=== PATIENT | female | born 1985 | race Caucasian/White ===

== ENCOUNTER 2025-09-02 18:40 | Observation (INO) | payer MEDICAID, SELFPAY ==
[2025-09-02 18:41] VITALS: BMI 43.8
[2025-09-02 19:34] VITALS: BP 161/95; PULSE 92; RESP 19; TEMP 36.9; O2SAT 100
--- NOTE | 2025-09-02 19:49 | XR_ITS ---
Examination: Venous duplex lower extremity sonogram, bilateral. Date and time of exam: September 02, 2025, 2054 hours INDICATIONS: Bilateral leg swelling and pain redness today Technique: Multiple sonographic images of the deep venous system have been obtained. B-mode/2-D grayscale imaging of vascular structures and Doppler spectral analysis (waveforms) and color performed Both legs are examined. Findings: Deep venous systems do not demonstrate abnormal echogenicity. All visualized deep veins exhibit compressibility. All visualized deep veins exhibit augmentation. Impression: Negative for deep vein thrombosis
--- NOTE | 2025-09-02 19:49 | XR_ITS ---
Examination: Arterial duplex lower extremity study. Date and time of exam: September 02, 2025, 2038 hours INDICATION: Bilateral leg swelling redness and pain today Findings: Duplex sonographic imaging of the lower extremity arteries using B-mode/Lau scale imaging and Doppler spectral analysis and color flow. . Right common femoral artery demonstrates triphasic flow. Right superficial femoral artery demonstrates triphasic flow. Right popliteal artery demonstrates triphasic flow. Right posterior tibial artery demonstrated triphasic flow. Left common femoral artery demonstrates triphasic flow. Left superficial femoral artery demonstrates triphasic flow. Left popliteal artery demonstrates triphasic flow. Left posterior tibial artery demonstrated monophasic flow. Impression: Suspicious for bilateral lower extremity obstructive arterial disease in the trifurcation arteries below the knee, consider correlation, elective, with CTA abdominal aorta iliofemoral runoff post intravenous contrast
--- NOTE | 2025-09-02 19:50 | EDRME_ITS ---
Rapid Medical Screening Exam RME Arrival date/time: 09/02/25 18:40 40F with history of CHF (based on chart history) as well as some type of arterial/venous blockage (clots had to be removed at [facility]) presents to ED with several days of BLE swelling, redness, pain, and warmth. Patient denies itching and obvious injury/trauma/cut. Chief Complaint: Extremity Injury, Lower Time Seen by Provider: 09/02/25 19:58 Vital signs: Vital Signs Temperature 98.4 F 09/02/25 19:34 Pulse Rate 92 09/02/25 19:34 Respiratory Rate 19 09/02/25 19:34 Blood Pressure 161/95 H 09/02/25 19:34 Pulse Oximetry (%) 100 09/02/25 19:34 Oxygen Delivery Method Room Air 09/02/25 19:34 Exam: BLE swelling and redness that goes up to knees. Normal WOB Clinical Impression: cellulitis vs DVT vs PAD vs CHF exacerbation vs nec fasc
[2025-09-02 20:24] LABS: Lactate (Lactic Acid) 0.6 mMol/L (0.4-2.0)
[2025-09-02 20:31] LABS: Sed Rate (ESR) 25 mm/hr (0-20)
[2025-09-02 20:34] LABS: Basophils # (Auto) 0.1 Thou/mm3 (0.0-0.2); Basophils % (Auto) 1 % (0-2.5); Eosinophils # (Auto) 0.2 Thou/mm3 (0.0-0.5); Eosinophils % (Auto) 3 % (0-10); Hematocrit 35.4 % (36.0-46.0); Hemoglobin 11.5 g/dL (12.0-16.0); Immature Granulocytes Auto 0.03 Thou/mm3 (0.00-0.00); Lymphocytes # (Auto) 1.8 Thou/mm3 (1.0-4.8); Lymphocytes % (Auto) 21 % (10-50); Mean Corpuscular HGB Conc 32.5 g/dl (31.0-37.0); Mean Corpuscular Hemoglobin 25.1 pg (25.0-35.0); Mean Corpuscular Volume 77 fL (80-100); Monocytes # (Auto) 0.7 Thou/mm3 (0.0-0.8); Monocytes % (Auto) 8 % (0-12); Neutrophils # (Auto) 5.8 Thou/mm3 (1.8-7.7); Neutrophils % (Auto) 67 % (37-80); Nucleated Red Blood Cell # 0.00 Thou/mm3 (0.00-0.00); Nucleated Red Blood Cell % 0 /100 WBC (0); Platelet Count 259 Thou/mm3 (140-440); RDW Standard Deviation 41.1 fL (36.4-46.3); Red Blood Count 4.58 Miln/mm3 (4.00-5.20); White Blood Count 8.6 Thou/mm3 (3.6-11.0)
[2025-09-02 20:48] LABS: B-Type Natriuretic Peptide 20 pg/mL (0-100)
[2025-09-02 20:52] LABS: Amphetamine/Methamp Scrn,U Positive (Negative); Barbiturate Screen,Urine Negative (Negative); Benzodiazepines Screen,Urine Negative (Negative); Benzoylecgonine Screen, Ur Negative (Negative); Fentanyl Screen,Urine Negative (Negative); Opiate Screen,Urine Negative (Negative); THC Screen,Urine Positive (Negative)
[2025-09-02 20:55] LABS: HCG Qualitative,Urine Negative
[2025-09-02 20:56] LABS: Alanine Aminotransferase 26 U/L (10-49); Albumin, Serum 4.4 gm/dL (3.5-5.0); Albumin/Globulin Ratio 1.4 (1.2-2.2); Alkaline Phosphatase 104 U/L (46-116); Anion Gap 8 (7-16); Aspartate Amino Transferase 23 U/L (0-34); BUN/Creatinine Ratio 12 Ratio (12-20); Bilirubin,Total 0.7 mg/dL (0.3-1.2); Blood Urea Nitrogen 11 mg/dL (9-23); C-Reactive Protein 1.6 mg/dL (0.0-0.9); Calcium 9.3 mg/dL (8.3-10.6); Calcium (Corrected) 9.3 mg/dL (8.5-10.1); Carbon Dioxide 27.7 mMol/L (20.0-31.0); Chloride 102 mMol/L (98-107); Creatinine (Component) 0.9 mg/dL (0.6-1.3); Estimated Creatinine Clearance 116.3 mL/min (>60); Globulin 3.2 gm/dL (2.3-3.5); Glucose 99 mg/dL (74-106); Osmolality,Calculated 275 (275-295); Potassium 4.0 mMol/L (3.4-5.1); Procalcitonin < 0.04 ng/ml (0.0-0.49); Sodium 138 mMol/L (136-145); Total Protein 7.6 gm/dL (5.7-8.2); eGFR > 60 See Note
[2025-09-03] VITALS (7 sets, daily range): BP systolic 122–190; BP diastolic 77–106; PULSE 87–99; RESP 12–19; TEMP 36.2–37.2; O2SAT 93–100; BMI 43.8
--- NOTE | 2025-09-03 01:50 | EDNOTE_ITS ---
Lower Extremity Injury RME/HPI General Chief Complaint: Extremity Injury, Lower Stated Complaint: B/L LEG SWELLING/REDNESS & WARM TO TOUCH Time Seen by Provider: 09/02/25 19:58 Arrival date/time: 09/02/25 18:40 RME / HPI RME / HPI Narrative: 09/02/25 18:40 40F with history of CHF (based on chart history) as well as some type of arterial/venous blockage (clots had to be removed at [facility]) presents to ED with several days of BLE swelling, redness, pain, and warmth. Patient denies itching and obvious injury/trauma/cut. DR. HERNANDEZ MAIN ED EVALUATION: 40 y/o female with FHx of CHF and Hx of HTN presents to ED c/o BLE redness, pain, and swelling x 2 days, but worse today. Patient denies fever, chills, nausea, and vomiting. Denies trauma. Denies any medical history or allergies to medications. Patient does admit to trying to quit Methamphetamine, but denies IV drug abuse. No alcohol use reported. Exam: BLE swelling and redness that goes up to knees. Normal WOB Impression: cellulitis vs DVT vs PAD vs CHF exacerbation vs nec fasc Related Data Previous Rx's ?Medication ?Instructions ?Recorded cephalexin 500 mg capsule 500 mg PO QID 4 days #16 cap s 09/05/25 Allergies Allergy/AdvReac Type Severity Reaction Status Date / Time No Known Allergies Allergy Verified 09/02/25 18:43 Review of Systems Review of Systems Systems Reviewed: All systems reviewed, normal except as documented Past Medical History Past Medical History CARDIAC: Positive Hypertension RESPIRATORY: Positive Asthma GASTROINTESTINAL: Positive Gall Bladder Disease PSYCHO/SOCIAL: Positive Recreational Drug Use Surgical History SURGICAL: Positive Throat Surgery, Abdominal Surgery and Section Social History SUBSTANCE USE: methamphetamine ALCOHOL: Never ED Exam Narrative Physical exam: GEN. APPEARANCE: The patient is alert awake oriented X-3 in no distress, lying down comfortably, does not look ill/toxic. Patient has good eye contact. Patient is cooperative. VITALS: All vitals were reviewed and the pulse ox is 100% on room air which is normal according to my interpretation. HEENT: Normocephalic, atraumatic. Pupils are equal and reactive. Oral mucosa is moist. Patent Nares NECK: Supple, nontender, no thyromegaly, no meningismus, no JVD CHEST: Symmetrical, atraumatic, and with equal expansion , Nontender on p alpation no deformity and no crepitus. CARDIOVASCULAR: Heart regular rhythm no murmur or gallop rub or extra beats. LUNGS: Clear to auscultation bilaterally with symmetrical chest rise. No laboring tachypnea or wheezing. No intercostal subcostal retraction. No rales and no rhonchi. ABDOMEN: Soft, flat, nontender to palpation, no guarding or rebound tenderness. There are no abnormal masses palpated. Active and normal bowel sounds. EXTREMITIES: BLE very TTP. 2+ pitting edema of BLE, warmth, and redness from the ankles to below the knees. No cyanosis. Patient is able to move all 4 extremities well, with full ROM and good CSM. 2+ DP pulses bl LE intact symmetrical. NEURO: Patient is ROWLEY x 4, Cranial nerves II through XII grossly intact. There is no focal neurologic deficits noted. GCS is 15, PNS and [employer] appear grossly intact. Course Quality Measures none Orders Category Date Time Status CT Screening NOW Care 09/03/25 01:[address] angio abd ilio fem runoff Stat Exams 09/03/25 01:52 Completed US arterial duplex LE BI Stat Exams 09/02/25 19:49 Completed US venous doppler LE BI Stat Exams 09/02/25 19:49 Completed BNP [B-Type Natriuretic Peptide] Stat Lab 09/02/25 20:17 Completed Blood Culture (Lab) Stat Lab 09/03/25 03:02 Results CBC Stat Lab 09/02/25 20:17 Completed CMP [Comprehensive Metabolic Panel] Stat Lab 09/02/25 20:17 Completed CRP [C-Reactive Protein] Stat Lab 09/02/25 20:17 Completed Drug Screen,Urine Stat Lab 09/02/25 20:30 Completed ESR [Sed Rate (ESR)] Stat Lab 09/02/25 20:17 Completed HCG Qualitative,Urine Stat Lab 09/02/25 20:30 Completed Lactate (Lactic Acid) Stat Lab 09/02/25 20:17 Completed Procalcitonin Stat Lab 09/02/25 20:17 Completed Vancomycin,Trough AM DRAW Lab 09/04/25 04:52 Completed Piper/Tazo Inj [Zosyn Inj] 4.5 gm Med 09/03/25 02:01 Discontinued Sodium Chloride 0.9% (Pop) [NS 0.9% mini bag] 100 ml IV STAT Vancomycin Pharmacy to Dose Med 09/03/25 09:00 Discontinued 1 each IV QDAY PRN Vancomycin/Ns 1 gm Ivpb 200 ml Med 09/03/25 02:15 Discontinued IV Q100M Vancomycin/Ns 1 gm Ivpb 200 ml Med 09/03/25 14:00 Discontinued IV Q8HR Vancomycin/Ns 1 gm Ivpb 200 ml Med 09/03/25 14:00 Discontinued IV Q8HR oxyCODONE/APAP 5/325 [Percocet 5/325] Med 09/03/25 03:00 Discontinued 1 tab PO X1 ONE Vital Signs Vital signs: Vital Signs Temperature 98.4 F 09/02/25 19:34 Pulse Rate 92 09/02/25 19:34 Respiratory Rate 19 09/02/25 19:34 Blood Pressure 161/95 H 09/02/25 19:34 Pulse Oximetry (%) 100 09/02/25 19:34 Oxygen Delivery Method Room Air 09/02/25 19:34 Extremity Injury, Lower MDM Narrative MDM Narrative:: Scribe Attestation: Meenakshi Eaton am scribing for and in the presence of Dr. Hernandez. Provider Notation: Although this document has been carefully reviewed, there may still be some phonetic and other typographical errors. These errors are purely grammatical due to imperfections in the software program and should not be c onstrued in any way to compromise the substance of the patient's medical care during this visit. Patient is a 40-year-old male with history of CHF is in the emergency department with concerns for bilateral lower extremity swelling pain redness and warmth. Prior provider evaluated patient. Ordered labs bilateral lower extremity ultrasound venous and arterial. Concern for DVT, arterial occlusion, cellulitis, CHF exacerbation among others Labs without leukocytosis, no left shift, hemoglobin 11.5 this is near the patient's normal. No acute metabolic disturbance, lactic acid normal, CRP is elevated to 1.6 BNP is normal procalcitonin not elevated drug screens positive for amphetamines and marijuana. Lower extremity venous ultrasounds without evidence of DVT, duplex scans of lower extremity arteries with evidence of possible bilateral lower extremity obstructive arterial disease in the trifurcation arteries below the knee. Will order CTA iliofemoral with runoff. Of note patient has required clot removal procedure and outside hospital [facility] years ago for similar symptoms. Also patient has been off of her medications for heart failure for some time as she has not been able to follow-up with her primary care doctor. On my assessment patient patient has swelling of bilateral lower extremity symmetric, as well as redness below the knee to the ankle warm and red concerning for cellulitis. Ordered blood cultures and antibiotics. Patient is not dyspneic not tachypneic not tachycardic. She is otherwise hemodynamically stable. CTA with cellulitis, no evidence of occluded vessel. Discussed admission with hospitalist service, kindly admitted patient for admission Patient data External records reviewed:: [facility] previous records (Reviewed prior ED records from 08/20/23. Patient was seen for Dental infection.) Clinical information provided by:: patient Social determinants that could affect healthcare access:: substance use (Methamphetamine) Patient has the following chronic illnesses:: Hypertension, Asthma, Gall Bladder Disease, Recreational Drug Use How is presenting disease/condition affected by chronic disease/condition?: exacerbated by Evaluation data The following diagnostics were reviewed and interpreted by me:: lab results and radiology exam(s) Lab and/or radiology exams considered but not ordered:: None Interpretation Summary: RADIOLOGY Venous Doppler Study US: Findings: Deep venous systems do not demonstrate abnormal echogenicity. All visualized deep veins exhibit compressibility. All visualized deep veins exhibit augmentation. Impression: Negative for deep vein thrombosis Duplex Scan of LE Artery: Findings: Duplex sonographic imaging of the lower extremity arteries using B-mode/Lau scale imaging and Doppler spectral analysis and color flow. Right common femoral artery demonstrates triphasic flow. Right superficial femoral artery demonstrates triphasic flow. Right popliteal artery demonstrates triphasic flow. Right posterior tibial artery demonstrated triphasic flow. Left common femoral artery demonstrates triphasic flow. Left superficial femoral artery demonstrates triphasic flow. Left popliteal artery demonstrates triphasic flow. Left posterior tibial artery demonstrated monophasic flow. Impression: Suspicious for bilateral lower extremity obstructive arterial disease in the trifurcation arteries below the knee, consider correlation, elective, with CTA abdominal aorta iliofemoral runoff post intravenous contrast Abdomen CTA: Findings: The lung bases are clear. Liver is enlarged. Status post cholecystectomy. The spleen, pancreas, adrenal glands and kidneys are unremarkable. The appendix is prominent, 1.2 cm in diameter, image 166 series 8. Bowel caliber is normal. The urinary bladder is normal. There is no adnexal cyst or mass. No free intraperitoneal air or fluid. The abdominal wall is unremarkable. No acute osseous process. Aorta, celiac, superior inferior mesenteric, bilateral renal arteries are unremarkable. Right lower extremity: Common, internal and external iliac, common femoral, superficial and profundofemoral, popliteal, anterior and posterior tibial and peroneal and dorsalis pedis arteries are unremarkable.Diffuse subcutaneous edema in the leg. Left lower extremity: Common, internal and external iliac, common femoral, superficial and profundofemoral, popliteal, anterior and posterior tibial and peroneal and dorsalis pedis arteries are unremarkable. Diffuse subcutaneous edema in the leg. Impression: Prominent appendix. Recommend clinical correlation to exclude appendicitis. Bilateral subcutaneous leg edema, may be seen with vascular insufficiency or cellulitis. No arterial occlusion or significant stenosis bilateral lower extremities. Medications / Prescriptions Medications or Prescriptions considered but not ordered:: None Medication administrations:: Medication Administration History Discontinued Medications Acetaminophen (Acetaminophen 325 Mg Tablet) 650 mg PO Q6H PRN PRN Reason: Fever >101.5 Stop: 10/03/25 07:43 Acetaminophen (Acetaminophen Supp 650 Mg Supp) 650 mg ND Q6H PRN PRN Reason: PAIN SCALE 1-3 (mild Stop: 10/03/25 07:43 Acetaminophen (Acetaminophen Supp 650 Mg Supp) 650 mg ND Q6HR PRN; Protocol PRN Reason: PAIN SCALE 1-3 (mild Stop: 10/04/25 10:09 Acetaminophen (Acetaminophen 325 Mg Tablet) 650 mg PO Q6HR PRN PRN Reason: Fever >101.5 Stop: 10/04/25 10:09 Hydrocodone Bitart/Acetaminophen (Hydrocodone/Apap 10/325 Tab) 2 tab PO Q4H PRN PRN Reason: PAIN SCALE 4-6 (Moderate Stop: 09/08/25 07:43 Hydrocodone Bitart/Acetaminophen (Hydrocodone/Apap 10/325 Tab) 1 tab PO Q4HR PRN PRN Reason: PAIN SCALE 4-6 (Moderate Stop: 09/08/25 07:43 Hydrocodone Bitart/Acetaminophen (Hydrocodone/Apap 10/325 Tab) 2 tab PO Q4H PRN PRN Reason: PAIN SCALE 7-10 (Severe Stop: 09/08/25 07:43 Hydrocodone Bitart/Acetaminophen (Hydrocodone/Apap 5/325 Tablet) 1 tab PO X1 ONE Stop: 09/04/25 10:07 Last Admin: 09/04/25 10:31 Dose: Not Given Documented By: GEN Non-Admin Reason: Duplicate Medication on eMAR Hydrocodone Bitart/Acetaminophen (Hydrocodone/Apap 10/325 Tab) 1 tab PO Q6HR PRN PRN Reason: PAIN SCALE 4-10(Mod-Sev Stop: 09/08/25 07:43 Last Admin: 09/04/25 23:00 Dose: 1 tab Documented By: Admin: 09/04/25 10:19 Dose: 1 tab Documented By: GEN Albuterol/Ipratropium (Albuterol/Ipratropium (Duoneb) Rt Monica 3 Ml Nebu) 3 ml INH Q6HRRT [facility] Stop: 10/03/25 18:59 Last Admin: 09/04/25 06:14 Dose: 3 ml Documented By: Admin: 09/04/25 00:38 Dose: 3 ml Documented By: Admin: 09/03/25 18:50 Dose: 3 ml Documented By: DON Albuterol/Ipratropium (Albuterol/Ipratropium (Duoneb) Rt Monica 3 Ml Nebu) 3 ml INH Q6HRRT PRN PRN Reason: wheezing, shortness of breath Stop: 10/03/25 18:59 Heparin Sodium (Porcine) (Heparin Sod Inj 5000 Unit/Ml Vial) 5,000 unit SC Q8HR [facility] Stop: 09/17/25 21:59 Last Admin: 09/05/25 06:06 Dose: 5,000 unit Documented By: CTF Co-signed By: MARAH Admin: 09/04/25 22:54 Dose: 5,000 unit Documented By: CTF Co-signed By: MARAH Admin: 09/04/25 13:46 Dose: 5,000 unit Documented By: GEN Co-signed By: JOSE Admin: 09/04/25 06:13 Dose: 5,000 unit Documented By: CTF Co-signed By: ELADIO Admin: 09/03/25 22:31 Dose: 5,000 unit Documented By: CTF Co-signed By: ELADIO Hydralazine HCl (Hydralazine Inj 20 Mg/Ml Vial) 10 mg IVP Q15MIN PRN PRN Reason: Hypertension Stop: 10/03/25 11:01 Last Admin: 09/03/25 11:30 Dose: 10 mg Documented By: JOSE Piperacillin Sod/Tazobactam (Sod 4.5 gm/ Sodium Chloride) 100 mls @ 200 mls/hr IV STAT STA; Protocol Stop: 09/03/25 02:30 Last Infusion: 09/03/25 04:30 Dose: Infused Documented By: Admin: 09/03/25 03:57 Dose: 200 mls/hr Documented By: MELISSAOR Vancomycin/Sodium Chloride (Vancomycin/Ns 1 Gm Ivpb) 200 mls @ 120 mls/hr IV Q100M GRACIE Stop: 09/03/25 05:34 Last Admin: 09/03/25 07:18 Dose: 120 mls/hr Documented By: Infusion: 09/03/25 06:41 Dose: Infused Documented By: Admin: 09/03/25 04:38 Dose: 120 mls/hr Documented By: MELISSAOR Vancomycin/Sodium Chloride (Vancomycin/Ns 1 Gm Ivpb) 200 mls @ 120 mls/hr IV Q8HR GRACIE; Protocol Stop: 09/10/25 13:59 Vancomycin/Sodium Chloride (Vancomycin/Ns 1 Gm Ivpb) 200 mls @ 120 mls/hr IV Q8HR GRACIE; Protocol Stop: 09/10/25 13:59 Vancomycin/Sodium Chloride (Vancomycin/Ns 1 Gm Ivpb) 200 mls @ 120 mls/hr IV Q8HR GRACIE; Protocol Stop: 09/10/25 13:59 Last Infusion: 09/04/25 10:30 Dose: Infused Documented By: Admin: 09/04/25 07:00 Dose: 120 mls/hr Documented By: Infusion: 09/04/25 00:06 Dose: Infused Documented By: Admin: 09/03/25 22:25 Dose: 120 mls/hr Documented By: [facility] Infusion: 09/03/25 16:17 Dose: Infused Documented By: [facility] Admin: 09/03/25 14:36 Dose: 120 mls/hr Documented By: JOSE Piperacillin/Tazobactam/Dextrose (Zosyn) 3.375 gm in 50 mls @ 12.5 mls/hr IV Q8HR GRACIE; Protocol Stop: 09/10/25 15:38 Last Infusion: 09/04/25 10:29 Dose: Infused Documented By: Admin: 09/04/25 06:10 Dose: 12.5 mls/hr Documented By: [facility] Infusion: 09/04/25 02:24 Dose: Infused Documented By: [facility] Admin: 09/03/25 22:24 Dose: 12.5 mls/hr Documented By: [facility] Infusion: 09/03/25 20:58 Dose: Infused Documented By: [facility] Admin: 09/03/25 16:58 Dose: 12.5 mls/hr Documented By: JOSE Vancomycin HCl (Vancomycin/Water 1250 Mg Ivpb) 250 mls @ 120 mls/hr IV Q12H GRACIE; Protocol Stop: 09/11/25 21:59 Last Admin: 09/05/25 11:13 Dose: 120 mls/hr Documented By: Infusion: 09/05/25 00:55 Dose: Infused Documented By: [facility] Admin: 09/04/25 22:50 Dose: 120 mls/hr Documented By: CELIA Ceftriaxone Sodium/Dextrose (Rocephin/D5w 1gm Iv Premix) 1 gm in 50 mls @ 100 mls/hr IV QDAY GRACIE Stop: 09/11/25 10:44 Last Infusion: 09/05/25 10:48 Dose: Infused Documented By: [facility] Admin: 09/05/25 09:47 Dose: 100 mls/hr Documented By: Infusion: 09/04/25 13:36 Dose: Infused Documented By: [facility] Admin: 09/04/25 12:11 Dose: 100 mls/hr Documented By: GEN Labetalol HCl (Labetalol Inj 5 Mg/Ml Vial 4 Ml) 10 mg IVP Q10MIN [facility] Stop: 10/03/25 10:59 Labetalol HCl (Labetalol Inj 5 Mg/Ml Vial 4 Ml) 10 mg IVP Q10MIN PRN PRN Reason: Hypertension Magnesium Hydroxide (Milk Of Magnesia Susp 30 Ml Udc) 30 ml PO QDAY PRN; Protocol PRN Reason: CONSTIPATION Stop: 10/03/25 07:43 Ondansetron HCl (Ondansetron Inj 2 Mg/Ml Inj 2 Ml) 4 mg IVP Q6H PRN; Protocol PRN Reason: NAUSEA OR VOMITING Stop: 10/03/25 07:43 Ondansetron HCl (Ondansetron Inj 2 Mg/Ml Inj 2 Ml) 4 mg IVP Q6HR PRN; Protocol PRN Reason: NAUSEA OR VOMITING Stop: 10/04/25 10:08 Oxycodone/Acetaminophen (Oxycodone/Apap 5/325 Tablet) 1 tab PO X1 ONE Stop: 09/03/25 03:01 Last Admin: 09/03/25 03:57 Dose: 1 tab Documented By: LILIANA Pharmacy Consult (Vancomycin Pharmacy To Dose 1 Each Each) 1 each IV QDAY PRN PRN Reason: PROTOCOL Stop: 10/03/25 08:59 See above if any. Consultations Consultation(s) initiated? (list below): Yes Consultation #1 (Physician, Specialty, Details): Discussed with resident physician for admission. Reviewed the patient?s HPI, PMHx, lab and/or radiology results. Discussed treatment plan. Will consult an admission to the hospitalist. Time: 07:12 Diagnosis Extremity Injury, Lower Differential Diagnosis: other (DVT, Cellulitis, Thrombophlebitis, Peripheral edema) Most likely diagnosis given after review of the tests above:: Cellulitis of both lower extremities, Bilateral lower extremity edema, Bilateral leg pain Admission Indicated Admission indicated?: indicated Explain why admission is indicated or not indicated:: Cellulitis of both lower extremities, Bilateral lower extremity edema, Bilateral leg pain Admission Request Was there a request for admission?: Yes Admission Attestation Admission request attestation: Discussed case with [] from Hospitalist service regarding admission. Discussed patients ED course, exam findings, labs, and radiology results. The Hospitalist [agrees,declines] to accept the patient for admission. Disposition Plan Disposition Plan: Admit Discharge Plan Plan Patient Disposition: Admit Acute Care w/in Hospital Patient condition on transfer: Stable Problem List Clinical Impression: Cellulitis of both lower extremities, Bilateral lower extremity edema, Bilateral leg pain Patient/Caregiver Discharge Instructions Discharge Activity: activity as tolerated
--- NOTE | 2025-09-03 01:52 | XR_ITS ---
Examination: CTA abdominal aorta iliofemoral runoff. 2-D sagittal coronal reconstructions. 3-D reconstructions, vascular September 03, 2025, 0450 hours INDICATIONS: Bilateral leg swelling and redness, clinical diagnosis of arterial occlusion lower extremities today Technique: Multiple CTA images of the abdominal aorta iliofemoral runoff arterial vessels, 2.0 mm slice thickness, post intravenous administration 130 cc [id number] 2-D sagittal coronal reconstructions. 3-D reconstructions, vascular 3-D postprocessing, including vascular maximum intensity projection images, 3-D volume rendering Low dose protocols were performed. One or more of the following dose reduction techniques were used; automated exposure control, adjustment of the mA and/or KV according to patient size, use of iterative reconstruction technique. Findings: No focal liver or splenic lesions Absent gallbladder No extrahepatic biliary tract dilatation, no common bile duct stones No pancreatic mass No hydronephrosis No bowel obstruction Appendix is mildly thickened but no periappendiceal inflammatory change No pelvic mass Urinary bladder intact Abdominal aorta common iliac arteries external iliac arteries and common femoral arteries intact Bilateral superficial femoral arteries popliteal arteries intact as well as trifurcation arterial vessels below the knees Edema in the lower legs no soft tissue abscess Negative for osteomyelitis IMPRESSION: Mildly prominent appendix without definite periappendiceal inflammatory change, the appearance should be clinically correlated Negative for obstructive arterial disease Cellulitis pattern in the lower extremities.
[2025-09-03] MEDS: PIPER/TAZO INJ 4.5 GM in SODIUM CHLORIDE 0.9% (POP) 100 ML IV (03:57)
[2025-09-03] MEDS: VANCOMYCIN/NS 1 GM IVPB 200 ML IV ×4 (04:38→22:25)
--- NOTE | 2025-09-03 06:04 | PRELIM_ITS ---
CT angiogram of the abdomen and bilateral lower extremities with intravenous contrast (axial sections with sagittal and coronal reformats) September 03, 2025 0450 hours Clinical History: Arterial occlusion. Comparison: No prior study is available for comparison. Findings: The lung bases are clear. Liver is enlarged. Status post cholecystectomy. The spleen, pancreas, adrenal glands and kidneys are unremarkable. The appendix is prominent, 1.2 cm in diameter, image 166 series 8. Bowel caliber is normal. The urinary bladder is normal. There is no adnexal cyst or mass. No free intraperitoneal air or fluid. The abdominal wall is unremarkable. No acute osseous process. Aorta, celiac, superior inferior mesenteric, bilateral renal arteries are unremarkable. Right lower extremity: Common, internal and external iliac, common femoral, superficial and profundofemoral, popliteal, anterior and posterior tibial and peroneal and dorsalis pedis arteries are unremarkable.Diffuse subcutaneous edema in the leg. Left lower extremity: Common, internal and external iliac, common femoral, superficial and profundofemoral, popliteal, anterior and posterior tibial and peroneal and dorsalis pedis arteries are unremarkable. Diffuse subcutaneous edema in the leg. Impression: Prominent appendix. Recommend clinical correlation to exclude appendicitis. Bilateral subcutaneous leg edema, may be seen with vascular insufficiency or cellulitis. No arterial occlusion or significant stenosis bilateral lower extremities. Report Electronically Signed By: Jose Rafael Duncan 09/03/2025 6:04:11 AM [EST]
[2025-09-03] MEDS: hydrALAZINE INJ 20 MG/ML VIAL 10 MG IVP (11:30)
--- NOTE | 2025-09-03 15:47 | ESHP_ITS ---
<Statement entered by Madhav Tovar MD - 09/04/25 13:53> Patient was seen and examined at bedside. Agree on the assessment and plan in this note. - Patient's plan and care discussed with my attending, Dr. Cherelle Tovar MD Internal Medicine PGY-3 Documentation for date of: 09/03/25 HPI History of Present Illness History of present illness: 40 year old female with a past medical history of hypertension, asthma and past surgical history significant for here for cellulitis. Patient states that for the past two days her legs have become progressively swollen, red and painful, which prompted her to come to [facility] ED. She denies recent hx or current symptoms of fever/chills/nausea/vomiting. She does not recall an inciting incident: no recent fall, trauma nor bugbites. Recent visits on 08/20 and 08/03 were for dental infection and dog bites, to which she was discharged on augmentin both times. Utox was positive for marijuana and methamphetamine. Pt discloses a history of methamphetamine use, with current efforts in trying to cut methamphetamine out. On presentation, patient is resting in bed. Arousable to voice, and GCS [address] AxOx3[address] DVT scan negative. CT of lower extremities demonstrate concern for cellulitis but no evidence of osteomyelitis. Physical presentation positive for errythematous, warm, well-mariginated areas on both lower extremities, painful to touch. Otherwise VSS no acute concerns. Patient started on Zosyn and Vancomycin pending cultures. Review of Systems Review of Systems Systems Reviewed: All systems reviewed, normal except as documented Exam Vital Signs Temp Pulse Resp BP Pulse Ox O2 Del Method 97.9 F 92 19 190/95 H 95 Room Air 09/03/25 10:00 09/03/25 11:30 09/03/25 10:00 09/03/25 11:30 09/03/25 10:00 09/03/25 10:00 Narrative Exam General: alert and oriented to self/place/year, no acute distress, able to speak full sentences HEENT: NC/AT, mucous membranes moist, bilateral sclera anicteric Cardiovascular: regular rate and rhythm, S1/S2 present, no murmurs appreciated Pulmonary: clear to auscultation bilaterally, no rales/rhonchi/wheezes Abdominal: soft nontender, tiger striae present Musculoskeletal: bilateral lower extremity errythema and swelling Skin: Warm, well-perfused Results: Labs 09/04/25 07:10 09/04/25 04:52 Labs: Short CBC 09/02/25 Range/Units 20:17 WBC 8.6 (3.6-11.0) Thou/mm3 Hgb 11.5 L (12.0-16.0) g/dL Hct 35.4 L (36.0-46.0) % Plt Count 259 (140-440) Thou/mm3 BMP 09/02/25 20:17 Sodium 138 Potassium 4.0 Chloride 102 Carbon Dioxide 27.7 BUN 11 Creatinine 0.9 Glucose 99 Calcium 9.3 Liver Function 09/02/25 Range/Units 20:17 Total Bilirubin 0.7 (0.3-1.2) mg/dL AST 23 (0-34) U/L ALT 26 (10-49) U/L Alkaline Phosphatase 104 (46-116) U/L Albumin 4.4 (3.5-5.0) gm/dL Quality Measures Quality Measures none Medications Home Medications and Allergies Home Medications ?Medication ?Instructions ?Recorded ?Confirmed ?Type No Known Home Medications 09/03/2508/16 History Allergies Allergy/AdvReac Type Severity Reaction Status Date / Time No Known Allergies Allergy Verified 09/02/25 18:43 Visit Medications Acetaminophen (Acetaminophen 325 Mg Tablet) 650 mg PO Q6H PRN PRN Reason: Fever >101.5 Stop: 10/03/25 07:43 Acetaminophen (Acetaminophen Supp 650 Mg Supp) 650 mg [place] Q6H PRN PRN Reason: PAIN SCALE 1-3 (mild Stop: 10/03/25 07:43 Hydrocodone Bitart/Acetaminophen (Hydrocodone/Apap 10/325 Tab) 1 tab PO Q4HR PRN PRN Reason: PAIN SCALE 4-6 (Moderate Stop: 09/08/25 07:43 Hydrocodone Bitart/Acetaminophen (Hydrocodone/Apap 10/325 Tab) 2 tab PO Q4H PRN PRN Reason: PAIN SCALE 7-10 (Severe Stop: 09/08/25 07:43 Hydralazine HCl (Hydralazine Inj 20 Mg/Ml Vial) 10 mg IVP Q15MIN PRN PRN Reason: Hypertension Stop: 10/03/25 11:01 Last Admin: 09/03/25 11:30 Dose: 10 mg Vancomycin/Sodium Chloride (Vancomycin/Ns 1 Gm Ivpb) 200 mls @ 120 mls/hr IV Q8HR GRACIE; Protocol Stop: 09/10/25 13:59 Last Admin: 09/03/25 14:36 Dose: 120 mls/hr Piperacillin/Tazobactam/Dextrose (Zosyn) 3.375 gm in 50 mls @ 12.5 mls/hr IV Q8HR GRACIE; Protocol Stop: 09/10/25 15:38 Magnesium Hydroxide (Milk Of Magnesia Susp 30 Ml Udc) 30 ml PO QDAY PRN; Protocol PRN Reason: CONSTIPATION Stop: 10/03/25 07:43 Ondansetron HCl (Ondansetron Inj 2 Mg/Ml Inj 2 Ml) 4 mg IVP Q6H PRN; Protocol PRN Reason: NAUSEA OR VOMITING Stop: 10/03/25 07:43 Pharmacy Consult (Vancomycin Pharmacy To Dose 1 Each Each) 1 each IV QDAY PRN PRN Reason: PROTOCOL Stop: 10/03/25 08:59 Discontinued Medications Hydrocodone Bitart/Acetaminophen (Hydrocodone/Apap 10/325 Tab) 2 tab PO Q4H PRN PRN Reason: PAIN SCALE 4-6 (Moderate Stop: 09/08/25 07:43 Piperacillin Sod/Tazobactam (Sod 4.5 gm/ Sodium Chloride) 100 mls @ 200 mls/hr IV STAT STA; Protocol Stop: 09/03/25 02:30 Last Infusion: 09/03/25 04:30 Dose: Infused Vancomycin/Sodium Chloride (Vancomycin/Ns 1 Gm Ivpb) 200 mls @ 120 mls/hr IV Q100M GRACIE Stop: 09/03/25 05:34 Last Admin: 09/03/25 07:18 Dose: 120 mls/hr Vancomycin/Sodium Chloride (Vancomycin/Ns 1 Gm Ivpb) 200 mls @ 120 mls/hr IV Q8HR GRACIE; Protocol Stop: 09/10/25 13:59 Vancomycin/Sodium Chloride (Vancomycin/Ns 1 Gm Ivpb) 200 mls @ 120 mls/hr IV Q8HR GRACIE; Protocol Stop: 09/10/25 13:59 Labetalol HCl (Labetalol Inj 5 Mg/Ml Vial 4 Ml) 10 mg IVP Q10MIN GRACIE Stop: 10/03/25 10:59 Labetalol HCl (Labetalol Inj 5 Mg/Ml Vial 4 Ml) 10 mg IVP Q10MIN PRN PRN Reason: Hypertension Oxycodone/Acetaminophen (Oxycodone/Apap 5/325 Tablet) 1 tab PO X1 ONE Stop: 09/03/25 03:01 Last Admin: 09/03/25 03:57 Dose: 1 tab Assessment & Plan Plan Ms. Bina Llanos is a 40 year old female with a past medical history significant for methamphetamine use here for bilateral cellulitis requiring IV antibiotics. #Cellulitis, BLLE 2x day history of bilateral lower leg swelling and erythema, present on examination and tender to palpation Previous admission for cellulitis/dental abscess/soft tissue infection Unclear mechanism of injury/infection CT Lower Extremities w/ evidence of cellulitis, no evidence of osteomyelitis Abdomen CTA w/ runoff negative for arterial occlusion in RLE LLE Doppler negative for DVT -Vancomycin, pharmacy to dose; 09/03 --> -Zosyn 3.375 g q8h 09/03 --> -Pending cultures #HTN reported history, unconfirmed by patient -Hydralazine 10mg PRN for >160/100 #Asthma Reported history, no records of prescription medications on file -Duoneb 3ml q6h PRN #Methamphetamine use Utox + -HIV HepC Hepatitis Panel ordered Hospital management: Disposition: IV Abx treatment of cellulitis Fluids: NA Diet: Regular Diet Lines: PIV's DVT prophylaxis: Heparin 5000U q24h CODE STATUS: full code Plan discussed with attending physician Dr. Matthew Grey and senior resident Dr. Madhav Bro MD, PGY1 Attending Provider Attestation/Addendum I have examined the patient, reviewed labs and imaging findings, discussed the case with the resident(s), and reviewed entered orders. I agree with the plan of care as outlined in this note, with these additional summaries/recommendations: After examination of the patient and review of the clinical data, I feel that this patient needs admission to the hospital for further treatment and evaluation. Dr. Matilda MD
[2025-09-03 16:08] LABS: HIV (1&2) Antibody Rapid Non-Reactive
[2025-09-03 16:31] LABS: Hepatitis C Ab (Source Pt) Non Reactive (Non React)
[2025-09-03] MEDS: PIPER/TAZO 3.375 GM PREMIX 3.375 GM/50 ML BAG IV ×2 (16:58→22:24)
[2025-09-03] MEDS: ALBUTEROL/IPRATROPIUM (Duoneb) RT SOL 3 ML NEBU INH (18:50)
[2025-09-03] MEDS: HEPARIN SOD INJ 5000 UNIT/ML VIAL SC (22:31)
[2025-09-04] VITALS (8 sets, daily range): BP systolic 114–157; BP diastolic 74–84; PULSE 87–102; RESP 16–20; TEMP 36.6–37.2; O2SAT 94–100
[2025-09-04] MEDS: ALBUTEROL/IPRATROPIUM (Duoneb) RT SOL 3 ML NEBU INH ×2 (00:38→06:14)
[2025-09-04] MEDS: PIPER/TAZO 3.375 GM PREMIX 3.375 GM/50 ML BAG IV (06:10)
[2025-09-04] MEDS: HEPARIN SOD INJ 5000 UNIT/ML VIAL SC ×3 (06:13→22:54)
[2025-09-04 06:41] LABS: Alanine Aminotransferase 19 U/L (10-49); Albumin, Serum 4.1 gm/dL (3.5-5.0); Albumin/Globulin Ratio 1.5 (1.2-2.2); Alkaline Phosphatase 92 U/L (46-116); Anion Gap 8 (7-16); Aspartate Amino Transferase 19 U/L (0-34); BUN/Creatinine Ratio 8 Ratio (12-20); Bilirubin,Total 0.5 mg/dL (0.3-1.2); Blood Urea Nitrogen 7 mg/dL (9-23); Calcium 8.7 mg/dL (8.3-10.6); Calcium (Corrected) 8.7 mg/dL (8.5-10.1); Carbon Dioxide 28.0 mMol/L (20.0-31.0); Chloride 106 mMol/L (98-107); Creatinine (Component) 0.9 mg/dL (0.6-1.3); Estimated Creatinine Clearance 116.3 mL/min (>60); Globulin 2.8 gm/dL (2.3-3.5); Glucose 103 mg/dL (74-106); Magnesium 2.0 mg/dL (1.6-2.6); Osmolality,Calculated 281 (275-295); Phosphorous 4.0 mg/dL (2.4-5.1); Potassium 4.4 mMol/L (3.4-5.1); Sodium 142 mMol/L (136-145); Total Protein 6.9 gm/dL (5.7-8.2); Vancomycin,Trough 14.5 mcg/mL (5.0-10.0); eGFR > 60 See Note
[2025-09-04] MEDS: VANCOMYCIN/NS 1 GM IVPB 200 ML IV (07:00)
[2025-09-04 07:57] LABS: Basophils # (Auto) 0.0 Thou/mm3 (0.0-0.2); Basophils % (Auto) 1 % (0-2.5); Eosinophils # (Auto) 0.2 Thou/mm3 (0.0-0.5); Eosinophils % (Auto) 3 % (0-10); Hematocrit 34.4 % (36.0-46.0); Hemoglobin 10.8 g/dL (12.0-16.0); Immature Granulocytes Auto 0.03 Thou/mm3 (0.00-0.00); Lymphocytes # (Auto) 1.9 Thou/mm3 (1.0-4.8); Lymphocytes % (Auto) 31 % (10-50); Mean Corpuscular HGB Conc 31.4 g/dl (31.0-37.0); Mean Corpuscular Hemoglobin 25.1 pg (25.0-35.0); Mean Corpuscular Volume 80 fL (80-100); Monocytes # (Auto) 0.5 Thou/mm3 (0.0-0.8); Monocytes % (Auto) 8 % (0-12); Neutrophils # (Auto) 3.4 Thou/mm3 (1.8-7.7); Neutrophils % (Auto) 57 % (37-80); Nucleated Red Blood Cell # 0.00 Thou/mm3 (0.00-0.00); Nucleated Red Blood Cell % 0 /100 WBC (0); Platelet Count 269 Thou/mm3 (140-440); RDW Standard Deviation 43.2 fL (36.4-46.3); Red Blood Count 4.31 Miln/mm3 (4.00-5.20); White Blood Count 6.1 Thou/mm3 (3.6-11.0)
--- NOTE | 2025-09-04 09:05 | ESPR_ITS ---
<Statement entered by Ming Villalobso MD - 09/04/25 09:07> No acute overnight events. Seen and examined at bedside and patient resting comfortably in bed. Denies any fevers, chills, sweats. On exam, bilateral lower extremity cellulitis has significantly improved on Zosyn and vancomycin. Blood cultures showing no growth to date from 09/03 and will continue to monitor for at least 1 more day. Pulse 102 and BP 155/84 but otherwise afebrile and on room air. CBC unremarkable, CHEM panel also unremarkable. Will follow-up on blood cultures and anticipate discharge within next 24-48 hours. ----- Note reviewed and agree with care plan as documented. Please refer to the note below for further details. Plan discussed with attending physician Dr. Matilda Villalobos MD PGY-2 Internal Medicine Documentation for date of: 09/04/25 Subjective Subjective Interval history: VSS NAEO. Cellulitis in bilateral lower extremities improved today. Ms. Llanos does not denote any recent travel history nor insect/animal bites. Notes that she has walked and gotten scratched by bushes/shrubery. Otherwise stable pending final culture results. Exam Vital Signs Temp Pulse Resp BP Pulse Ox O2 Del Method 98.9 F 102 H 20 155/84 H 100 Room Air 09/04/25 04:00 09/04/25 06:15 09/04/25 06:15 09/04/25 00:00 09/04/25 06:15 09/04/25 04:00 Narrative Exam General: alert and oriented to self/place/year, no acute distress, able to speak full sentences HEENT: NC/AT, mucous membranes moist, bilateral sclera anicteric Cardiovascular: regular rate and rhythm, S1/S2 present, no murmurs appreciated Pulmonary: clear to auscultation bilaterally, no rales/rhonchi/wheezes Abdominal: soft, nontender, present bowel sounds Musculoskeletal: bilateral circumferential errythema without significant swelling nor mottling; pulses in tact, tender to touch. Skin: Warm, well-perfused Objective Labs 09/05/25 05:29 09/04/25 04:52 Labs: Laboratory Results - last 24 hr 09/03/25 09/04/25 09/04/25 14:54 04:52 07:10 WBC 6.1 RBC 4.31 Hgb 10.8 L Hct 34.4 L MCV 80 MCH 25.1 MCHC 31.4 RDW Std Deviation 43.2 Plt Count 269 Neut % (Auto) 57 Lymph % (Auto) 31 [place] % (Auto) 8 Eos % (Auto) 3 Baso % (Auto) 1 Neut # (Auto) 3.4 Lymph # (Auto) 1.9 [place] # (Auto) 0.5 Eos # (Auto) 0.2 Baso # (Auto) 0.0 Immature Gran # (Auto) 0.03 H Absolute Nucleated RBC 0.00 Immature Gran % 1 H Nucleated RBC % 0 Sodium 142 Potassium 4.4 Chloride 106 Carbon Dioxide 28.0 Anion Gap 8 BUN 7 L Creatinine 0.9 Estim Creat Clear Calc 116.3 eGFR > 60 BUN/Creatinine Ratio 8 L Glucose 103 Calculated Osmolality 281 Calcium 8.7 Corrected Calcium 8.7 Phosphorus 4.0 Magnesium 2.0 Total Bilirubin 0.5 AST 19 ALT 19 Alkaline Phosphatase 92 Total Protein 6.9 Albumin 4.1 Globulin 2.8 Albumin/Globulin Ratio 1.5 Vancomycin Trough 14.5 H Hepatitis C Antibody Non Reactive HIV 1&2 Antibody Rapid Non-Reactive Quality Measures Quality Measures none Assessment & Plan Assessment Current Active Medications: Generic Name Dose Route Start Last Admin Trade Name Freq PRN Reason Stop Dose Admin Acetaminophen 650 mg 09/03/25 07:44 Acetaminophen 325 Mg Tablet PO 10/03/25 07:43 Q6H PRN Fever >101.5 Acetaminophen 650 mg 09/03/25 07:44 Acetaminophen Supp 650 Mg Supp ND 10/03/25 07:43 Q6H PRN PAIN SCALE 1-3 (mild Hydrocodone Bitart/Acetaminophen 1 tab 09/03/25 07:44 Hydrocodone/Apap 10/325 Tab PO 09/08/25 07:43 Q4HR PRN PAIN SCALE 4-6 (Moderate Hydrocodone Bitart/Acetaminophen 2 tab 09/03/25 07:55 Hydrocodone/Apap 10/325 Tab PO 09/08/25 07:43 Q4H PRN PAIN SCALE 7-10 (Severe Albuterol/Ipratropium 3 ml 09/03/25 19:00 09/04/25 06:14 Albuterol/Ipratropium (Duoneb) Rt Monica 3 Ml Nebu INH 10/03/25 18:59 3 ml Q6HRRT GRACIE Administration Heparin Sodium (Porcine) 5,000 unit 09/03/25 22:00 09/04/25 06:13 Heparin Sod Inj 5000 Unit/Ml Vial SC 09/17/25 21:59 5,000 unit Q8HR GRACIE Administration Hydralazine HCl 10 mg 09/03/25 11:02 09/03/25 11:30 Hydralazine Inj 20 Mg/Ml Vial IVP 10/03/25 11:01 10 mg Q15MIN PRN Administration Hypertension Piperacillin/Tazobactam/Dextrose 3.375 gm in 50 mls @ 12.5 mls/hr 09/03/25 15:39 09/04/25 06:10 Zosyn IV 09/10/25 15:38 12.5 mls/hr Q8HR GRACIE Administration Protocol Vancomycin HCl 250 mls @ 120 mls/hr 09/04/25 22:00 Vancomycin/Water 1250 Mg Ivpb IV 09/11/25 21:59 Q12H GRACIE Protocol Magnesium Hydroxide 30 ml 09/03/25 07:44 Milk Of Magnesia Susp 30 Ml Udc PO 10/03/25 07:43 QDAY PRN CONSTIPATION Protocol Ondansetron HCl 4 mg 09/03/25 07:44 Ondansetron Inj 2 Mg/Ml Inj 2 Ml IVP 10/03/25 07:43 Q6H PRN NAUSEA OR VOMITING Protocol Pharmacy Consult 1 each 09/03/25 09:00 Vancomycin Pharmacy To Dose 1 Each Each IV 10/03/25 08:59 QDAY PRN PROTOCOL Plan Ms. Bina Llanos is a 40 year old female with a past medical history significant for methamphetamine use here for bilateral cellulitis requiring IV antibiotics. #Cellulitis, BLLE 2x day history of bilateral lower leg swelling and erythema, present on examination and tender to palpation Previous admission for cellulitis/dental abscess/soft tissue infection Unclear mechanism of injury/infection CT Lower Extremities w/ evidence of cellulitis, no evidence of osteomyelitis Abdomen CTA w/ runoff negative for arterial occlusion in RLE LLE Doppler negative for DVT -Vancomycin, pharmacy to dose; 09/03 --> -Zosyn 3.375 g q8h 09/03 --> -Pending cultures #HTN reported history, unconfirmed by patient -Hydralazine 10mg PRN for >160/100 #Asthma Reported history, no records of prescription medications on file -Duoneb 3ml q6h PRN #Methamphetamine use Utox + Negative HIV Hepatitis panel Patient seen and discussed with attending physician Dr. Matthew Grey and senior resident Dr. Ming Bro MD PGY-1 Attending Provider Attestation/Addendum I have examined the patient, reviewed labs and imaging findings, discussed the case with the resident(s), and reviewed entered orders. I agree with the plan of care as outlined in this note. Dr. Matilda MD
[2025-09-04] MEDS: cefTRIAXone/D5w 1gm IV premix 1 GM/50 ML BAG IV (12:11)
--- NOTE | 2025-09-04 15:46 | PC.SS ---
Supervisor Press Room (ERASTO) Shanda met with the patient at the bedside to complete an initial assessment and discuss a discharge plan. Patient is alert and oriented to person, place, and situation, and provided verbal consent to participate in the assessment. The patient is presenting drowsy, sleepy, but arousable. The patient was admitted for cellulitis. Patient is Bina Llanos, 40 y/o Tamaz[place]-speaking female residing in [place]. Patient reports she came to visit her children. Patient does have a [place] mailing address: [address] [place] [id number]. Patient designated her father, Isra Llanos, , as her surrogate medical decision maker. Patient reports that at baseline she is independent with no assistance from DME, no oxygen, or dialysis. The patient's pharmacy is [facility] inside [facility]. Patient's PCP is from [facility]. The patient's discharge plan is to her cousin's home here in [place], and she will also provide transportation. Patient's toxicology report was positive. ERASTO educated the patient on substance abuse cessation and provided the patient with community, mental health, and substance abuse resources. Surrogate medical decision maker: father, Isra, Discharge plan: Home
[2025-09-04] MEDS: VANCOMYCIN/WATER 1250 MG IVPB 250 ML 120 MG IV (22:50)
[2025-09-05] VITALS: BP 147/87; PULSE 91; RESP 18; TEMP 37.3; O2SAT 96
[2025-09-05 04:00] VITALS: BP 131/99; PULSE 90; RESP 18; TEMP 36.2; O2SAT 98
[2025-09-05] MEDS: HEPARIN SOD INJ 5000 UNIT/ML VIAL SC (06:06)
[2025-09-05 06:08] LABS: Basophils # (Auto) 0.0 Thou/mm3 (0.0-0.2); Basophils % (Auto) 1 % (0-2.5); Eosinophils # (Auto) 0.3 Thou/mm3 (0.0-0.5); Eosinophils % (Auto) 5 % (0-10); Hematocrit 35.1 % (36.0-46.0); Hemoglobin 10.8 g/dL (12.0-16.0); Immature Granulocytes Auto 0.02 Thou/mm3 (0.00-0.00); Lymphocytes # (Auto) 2.3 Thou/mm3 (1.0-4.8); Lymphocytes % (Auto) 35 % (10-50); Mean Corpuscular HGB Conc 30.8 g/dl (31.0-37.0); Mean Corpuscular Hemoglobin 24.8 pg (25.0-35.0); Mean Corpuscular Volume 81 fL (80-100); Monocytes # (Auto) 0.5 Thou/mm3 (0.0-0.8); Monocytes % (Auto) 8 % (0-12); Neutrophils # (Auto) 3.4 Thou/mm3 (1.8-7.7); Neutrophils % (Auto) 51 % (37-80); Nucleated Red Blood Cell # 0.00 Thou/mm3 (0.00-0.00); Nucleated Red Blood Cell % 0 /100 WBC (0); Platelet Count 263 Thou/mm3 (140-440); RDW Standard Deviation 44.2 fL (36.4-46.3); Red Blood Count 4.35 Miln/mm3 (4.00-5.20); White Blood Count 6.6 Thou/mm3 (3.6-11.0)
[2025-09-05 07:57] LABS: Alanine Aminotransferase 17 U/L (10-49); Albumin, Serum 4.2 gm/dL (3.5-5.0); Albumin/Globulin Ratio 1.4 (1.2-2.2); Alkaline Phosphatase 90 U/L (46-116); Anion Gap 12 (7-16); Aspartate Amino Transferase 19 U/L (0-34); BUN/Creatinine Ratio 9 Ratio (12-20); Bilirubin,Total 0.4 mg/dL (0.3-1.2); Blood Urea Nitrogen 7 mg/dL (9-23); Calcium 9.2 mg/dL (8.3-10.6); Calcium (Corrected) 9.2 mg/dL (8.5-10.1); Carbon Dioxide 24.5 mMol/L (20.0-31.0); Chloride 106 mMol/L (98-107); Creatinine (Component) 0.8 mg/dL (0.6-1.3); Estimated Creatinine Clearance 141.1 mL/min (>60); Globulin 2.9 gm/dL (2.3-3.5); Glucose 93 mg/dL (74-106); Magnesium 1.9 mg/dL (1.6-2.6); Osmolality,Calculated 281 (275-295); Phosphorous 4.1 mg/dL (2.4-5.1); Potassium 4.4 mMol/L (3.4-5.1); Sodium 142 mMol/L (136-145); Total Protein 7.1 gm/dL (5.7-8.2); eGFR > 60 See Note
[2025-09-05 08:00] VITALS: BP 118/87; PULSE 98; RESP 17; TEMP 36.3; O2SAT 97
[2025-09-05] MEDS: cefTRIAXone/D5w 1gm IV premix 1 GM/50 ML BAG IV (09:47)
[2025-09-05] MEDS: VANCOMYCIN/WATER 1250 MG IVPB 250 ML 120 MG IV (11:13)
[2025-09-05 12:00] VITALS: BP 151/92; PULSE 100; RESP 18; TEMP 37.1; O2SAT 95
--- NOTE | 2025-09-05 13:20 | PD.RESDS ---
Planned Discharge Date 09/05/25 DS: Providers Provider Date of admission: 09/03/25 07:44 Primary care physician: Sergei Chong MD Admitting Provider: Matthew Grey MD Attending Provider on Admission: Matthew Grey MD Attending Provider on DC: Ming Villalobos MD Discharging Provider: Matthew Grey MD DS: Diagnosis Problem List Completed Was Problem List Reviewed/Reconciled?: Yes Hospital Course Hospital Course Hospital course: A 64-year-old a 40-year-old female patient with past medical history of hypertension, asthma, came to the ED due to lower extremity pain and redness. She reported that the symptoms started a few days ago. Patient does not remember any history of insect bite, trauma, or injury. She reported that she went for a walking on a trail however does not remember any injuries at that time. Doppler ultrasound bilateral was negative for any DVT, CT angio runoff was negative for any arterial occlusion. She was tested positive for methamphetamine. Patient was admitted for treatment of extensive cellulitis in which she was was given vancomycin and Zosyn. Cultures from the blood both were negative after 48 hours. Patient condition continued to be improving. Patient deemed to be clinically stable for discharge on oral antibiotics. Patient was given the following instructions: - Follow up with your PCP within one week from discharge - In case of worsening of her symptoms please return to the ED as soon as possible - Continue using your medications as prescribed - Avoid meth abuse as it increase risk of heart failure and . - Use meds as prescribed. Discharging diagnosis #Cellulitis, extensive bilateral on the lower extremities #Hypertension #Methamphetamine use disorder #History of asthma Time Spent with Patient Time attestation: Total time spent providing and/or coordinating discharge services: Time spent: Greater than 30 minutes Exam Vital Signs Temp Pulse Resp BP Pulse Ox O2 Del Method 97.3 F 98 17 118/87 H 97 Room Air 09/05/25 08:00 09/05/25 08:00 09/05/25 08:00 09/05/25 08:00 09/05/25 08:00 09/05/25 08:00 Narrative Exam GEN: AOx3, able to speak full sentences HEENT: NC/AC, PERRLA, oral mucosa moist, neck supple CVS: RRR, S1-S2 present, no murmurs appreciated RESP: CTAB GI: soft,non distended, non tender, NBS MSK: able to move all 4 limbs, no lower extremity edema SKIN: Significant improving cellulitis on the lower front third of both lower extremities. Located only on the front more on the left than the right. Continue to improve since yesterday. LABORATORY COURIER: CN II-XII and Sensation grossly intact. Discharge Plan Plan Patient Disposition: HOME (Self Care) Patient condition on transfer: Stable Care Plan Goals: - Follow up with your PCP within one week from discharge - In case of worsening of her symptoms please return to the ED as soon as possible - Continue using your medications as prescribed - Avoid meth abuse as it increase risk of heart failure and . - Use meds as prescribed. Prescriptions/Referrals Prescriptions/Med Rec: New cephalexin 500 mg capsule 500 mg PO QID 4 Days Qty: 16 0RF Referrals: Sergei Chong MD [Primary Care Provider, Family Practice] Patient/Caregiver Discharge Instructions Discharge Activity: activity as tolerated Education Materials: Medicine for Pain, Discharge Instructions for Cellulitis, ED Cellulitis, ED Leg Swelling in Both Legs Print Language: Setswana Stand Alone Forms: Meredith Award Info., Patient Portal Info Letter, Work/Release Restrictions Discharge Order Discharge Orders: Discharge (Routine); Ordered 09/05/25 Ordered By: Ming Villalobos Quality Discharge Quality Measures VTE prophylaxis Attestestation MD Attestation I have examined the patient, reviewed labs and imaging findings, discussed the case with the resident(s), and reviewed entered orders. I agree with the plan of care as outlined in this note. Time Spent; [address] Matilda MD
[2025-09-13 07:06] LABS: Hepatitis B Core Ab,Total* NONREACTIVE
== END 2025-09-05 13:54 | disposition home or self-care (01) ==
LOC: SERX 09-03 07:14 → SERHOLD 09-03 09:45 → S3SX 09-05 09:18 → SERHOLD 09-06 09:48
PROVIDERS: Physician Assistant; Admitting Provider Student in an Organized Health Care Education/Training Program; Emergency Provider Emergency Medicine; PCP Family Medicine; Visit Provider Student in an Organized Health Care Education/Training Program
DX: L03.115 Cellulitis of right lower limb (principal); L03.116 Cellulitis of left lower limb; I10 Essential (primary) hypertension; J45.909 Unspecified asthma, uncomplicated; F15.10 Other stimulant abuse, uncomplicated
CPT/HCPCS: 36415; 75635; 80053; 80202; 80307; 81025; 83605; 83735; 83880; 84100; 84145; 85025; 85652; 86140; 86703; 86704; 87040; 93925; 93970; 94640; 94664; 96365; 96366; 96372; 96375; 99284; A4649; A9270; G0378; J0360; J0696; J1644; J2543; J3373; J3375; Q9967